=== PATIENT | male | born 1975 | race Caucasian/White ===

== ENCOUNTER 2022-05-21 08:07 | Outpatient (CLI) | payer OTHER, SELFPAY | END 2022-05-21 08:08 | disposition home or self-care (01) | LOC: NFLDREF 05-23 02:08 | PROVIDERS: PCP Physician Assistant Medical; Referring Provider Physician Assistant Medical; Visit Provider Physician Assistant Medical | DX: Z00.00 Encounter for general adult medical examination without abnormal findings (principal); I10 Essential (primary) hypertension; R73.09 Other abnormal glucose; R79.89 Other specified abnormal findings of blood chemistry; M10.9 Gout, unspecified | CPT/HCPCS: 80053; 80061 ==

== ENCOUNTER 2022-05-29 08:11 | Outpatient (CLI) | payer OTHER, SELFPAY | END 2022-05-29 08:12 | disposition home or self-care (01) | LOC: NFLDREF 05-30 14:41 | PROVIDERS: PCP Physician Assistant Medical; Referring Provider Physician Assistant Medical; Visit Provider Physician Assistant Medical | DX: Z00.00 Encounter for general adult medical examination without abnormal findings (principal); I10 Essential (primary) hypertension; R09.81 Nasal congestion | CPT/HCPCS: 87086 ==

== ENCOUNTER 2022-06-17 10:54 | Emergency (ER) | payer OTHER, SELFPAY ==
[2022-06-17 11:04] VITALS: BP 136/93; PULSE 108; RESP 14; TEMP 36; O2SAT 97; BMI 34.5
[2022-06-17] MEDS: 0.9 % SODIUM CHLORIDE 1000 ml 1,000 ML IV ×2 (12:10→13:25)
[2022-06-17] MEDS: ONDANSETRON 2 MG/ML inj 4 MG IVP (12:15)
[2022-06-17 12:27] LABS: Lactate* 1.1 mmol/L (0.5-1.9)
--- NOTE | 2022-06-17 12:31 | ED.NAVMDI ---
HPI - Nausea/Vomiting/Diarrhea General Date Seen: 06/17/22 Chief complaint: Diarrhea Stated complaint: Diarrhea Time Seen by Provider: 06/17/22 11:09 Source: patient and family Mode of arrival: ambulatory Limitations: no limitations History of Present Illness HPI Narrative: Patient is a very nice gentleman who presents here with 4 days of diarrhea, and low abdominal cramping/pain. Just return from [place] and the [facility] [place] with his family, says he drank more than he should 8 more than he should, he is the only family member that has the diarrhea, and there is absence of any nausea vomiting. 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 MD elicited complaint: diarrhea Onset (ago): day(s) Description of diarrhea: watery Associated nausea: No Associated abdominal pain: No Location of pain: none Severity: moderate Quality: cramping Exacerbating factors: eating Relieving factors: none Associated symptoms: denies other symptoms Related Data Home Medications Medication Instructions Recorded Confirmed losartan 50 mg tablet mg PO DAILY 05/29/22 triamcinolone acetonide 55 mcg 2 intranasal DAILY 05/29/22 nasal spray aerosol Previous Rx's Medication Instructions Recorded ondansetron 4 mg disintegrating 4 mg PO Q8-12H PRN nausea and 06/17/22 tablet vomiting 4 days #14 tabs Allergies Allergy/AdvReac Type Severity Reaction Status Date / Time hydrochlorothiazide Allergy Unknown Unknown Verified 06/17/22 13:56 Review of Systems Status of ROS: Reports: 10 or more systems reviewed and unremarkable except as noted in History and below GI: Denies: nausea PFSH PFSH Surgical History History of facial surgery ?Z98.890 - Other specified postprocedural states (ICD-10) Family History Father Diabetes High blood pressure Daughter Seizure disorder Parathyroid disease Social History Narrative: , 3 daughters Alcohol use-regular use without concerns Non-smoker Smoking Status: Never smoker Do you use any of these nicotine containing products: None Second hand tobacco smoke exposure: No How often do you have a drink containing alcohol: 4 or more times a week How many standard drinks containing alcohol do you have on a typical day: 3 or 4 How often do you have six or more drinks on one occasion: Monthly AUDIT-C Alcohol total score: 7 Non-prescribed substance use: marijuana (any form) Little interest or pleasure in doing things: not at all Feeling down, depressed, or hopeless: not at all service: No Exam Narrative: Exam Narrative: Patient is seen with his , he is in no apparent distress, speaking to me normally his pupils are equal round reactive to light there is no scleral icterus redness TMs bilaterally are normal, oropharynx normal there is no lymphadenopathy anterior posterior chains, chest is good air entry bilaterally with no wheezing crackles noted, heart sounds no clicks murmurs or gallops, abdomen is soft little bit of tenderness in the left lower quadrant on deep palpation, bowel sounds are normal, no CVA tenderness he moves all extremities independently and well, skin reveals no petechiae rashes. Const: Vital Signs, click to edit/add: Vital Signs - 24 hr 06/17/22 11:04 06/17/22 12:40 06/17/22 14:02 Temperature 96.8 F L 97 F L Pulse Rate [Right Pulse Oximeter] 108 H 84 86 Respiratory Rate 14 20 20 Blood Pressure [Le ft Upper Arm] 135/83 Blood Pressure [Ri ght Upper Arm] 136/93 H 114/78 Pulse Oximetry 97 97 99 Oxygen Delivery Me thod Room Air Room Air Room Air Course Course Hospital Course: Discussed with the patient that his CT did not show any acute abnormality, given history, examination, and will over seen with the labs, I would ask him to use Pepto-Bismol along with some Zofran, I think this will significantly help him over the next few days we went over signs is worsening, and worsening symptoms, he should return if these occur he was very comfortable with this. Vital Signs Vital signs: Initial Vital Signs Temperature 96.8 F L 06/17/22 11:04 Temperature Source Temporal Artery Scan 06/17/22 11:04 Pulse Rate 108 H 06/17/22 11:04 Respiratory Rate 14 06/17/22 11:04 Blood Pressure 136/93 H 06/17/22 11:04 Blood Pressure Mean 107 06/17/22 11:04 Blood Pressure Position Sitting 06/17/22 11:04 Pulse Oximetry 97 06/17/22 11:04 Oxygen Delivery Method Room Air 06/17/22 11:04 Vital Signs Temperature 96.8 F L 06/17/22 11:04 Pulse Rate 108 H 06/17/22 11:04 Respiratory Rate 14 06/17/22 11:04 Blood Pressure 136/93 H 06/17/22 11:04 Pulse Oximetry 97 06/17/22 11:04 Oxygen Delivery Method Room Air 06/17/22 11:04 Temperature 97 F L 06/17/22 14:02 Pulse Rate 86 06/17/22 14:02 Respiratory Rate 20 06/17/22 14:02 Blood Pressure 135/83 06/17/22 14:02 Pulse Oximetry 99 06/17/22 14:02 Oxygen Delivery Method Room Air 06/17/22 14:02 MDM - Nausea/Vomiting/Diarrhea MDM Narrative Medical decision making narrative: Differential diagnosis considered include but not limited to viral gastroenteritis, food poisoning, bowel obstruction, Clostridium difficile, Campylobacter, Shigella, rotavirus, medication side effects, dysentery, diverticulitis, Crohn's disease and colitis Medical Records Attestation: I reviewed the patient's medical records. Lab Data Attestation: I reviewed the patient's lab results. Labs: Lab Results 06/17/22 06/17/22 06/17/22 Range/Units 11:41 11:52 12:05 WBC 16.41 H (4.50-11.00) K/uL RBC 5.59 (4.30-5.90) m/uL Hgb 16.7 (13.5-17.5) gm/dL Hct 48.9 (37.0-53.0) % MCV 88 (80-100) fL MCH 30 (26-34) pg MCHC 34 (32-36) gm/dL RDW Coeff of Daphne 12.9 (11.5-15.5) % Plt Count 415 (140-440) K/uL Neut % (Auto) 80.4 H (42.0-72.0) % Lymph % (Auto) 9.4 L (20-44) % [place] % (Auto) 7.1 (0.0-11.0) % Eos % (Auto) 2.5 (0.0-7.0) % Baso % (Auto) 0.2 (0.0-3.0) % Neut # (Auto) 13.20 H (1.7-7.0) K/uL Lymph # (Auto) 1.50 (0.90-2.90) K/uL [place] # (Auto) 1.20 H (0.00-0.90) K/UL Eos # (Auto) 0.40 (0.00-0.50) K/uL Baso # (Auto) 0.00 (0.00-0.30) K/uL Sodium 140 (135-149) mmol/L Potassium 4.0 (3.6-5.1) mmol/L Chloride 107 (96-114) mmol/L Carbon Dioxide 19 L (20-32) mmol/L BUN 16 (5-24) mg/dL Creatinine 0.9 (0.5-1.5) mg/dL Estimated Creat Clear 119.97 Estimated GFR 105 ml/min Glucose 100 (60-115) mg/dL Lactate 1.1 (0.5-1.9) mmol/L Calcium 9.2 (8.4-10.6) mg/dL Total Bilirubin 0.8 (0.1-1.5) mg/dL Direct Bilirubin 0.4 (0.0-0.5) mg/dL AST 50 H (12-35) U/L ALT 105 H (4-50) U/L Alkaline Phosphatase 84 (40-150) U/L C-Reactive Protein 1.5 H (0.5-1.0) mg/dL Total Protein 9.0 H (6.0-8.3) g/dL Albumin 5.1 H (3.3-5.0) g/dL Lipase 71 (23-300) U/L Urine Color (Yellow) Urine Appearance (Clear) Urine pH (5.0-8.5) Ur Specific [place] (1.000-1.030) Urine Protein (Negative) Urine Glucose (UA) (Negative) Urine Ketones (Negative) Urine Blood (Negative) Urine Nitrite (Negative) Urine Bilirubin (Negative) Urine Urobilinogen (0.2-1.0) Ur Leukocyte Esterase (Negative) Urine RBC (0-2) Urine WBC (0-5) Ur Squamous Epith Cells (None-Few) Urine Bacteria (None) Urine Mucus (None) Stl C.difficile Tox PCR Negative (Negative) St C. diff Tox Epid 027 PRESUMPTIVE NEGATIVE (Negative) SARS-CoV-2 (PCR) Negative SARS-CoV-2 (Negative) Influenza Type A (PCR) Negative PCR FLU A (Negative) Influenza Type B (PCR) Negative PCR FLU B (Negative) RSV (PCR) Negative PCR RSV (Negative) 06/17/22 Range/Units 13:40 WBC (4.50-11.00) K/uL RBC (4.30-5.90) m/uL Hgb (13.5-17.5) gm/dL Hct (37.0-53.0) % MCV (80-100) fL MCH (26-34) pg MCHC (32-36) gm/dL RDW Coeff of Daphne (11.5-15.5) % Plt Count (140-440) K/uL Neut % (Auto) (42.0-72.0) % Lymph % (Auto) (20-44) % [place] % (Auto) (0.0-11.0) % Eos % (Auto) (0.0-7.0) % Baso % (Auto) (0.0-3.0) % Neut # (Auto) (1.7-7.0) K/uL Lymph # (Auto) (0.90-2.90) K/uL [place] # (Auto) (0.00-0.90) K/UL Eos # (Auto) (0.00-0.50) K/uL Baso # (Auto) (0.00-0.30) K/uL Sodium (135-149) mmol/L Potassium (3.6-5.1) mmol/L Chloride (96-114) mmol/L Carbon Dioxide (20-32) mmol/L BUN (5-24) mg/dL Creatinine (0.5-1.5) mg/dL Estimated Creat Clear Estimated GFR ml/min Glucose (60-115) mg/dL Lactate (0.5-1.9) mmol/L Calcium (8.4-10.6) mg/dL Total Bilirubin (0.1-1.5) mg/dL Direct Bilirubin (0.0-0.5) mg/dL AST (12-35) U/L ALT (4-50) U/L Alkaline Phosphatase (40-150) U/L C-Reactive Protein (0.5-1.0) mg/dL Total Protein (6.0-8.3) g/dL Albumin (3.3-5.0) g/dL Lipase (23-300) U/L Urine Color Dark yellow (Yellow) Urine Appearance Cloudy A (Clear) Urine pH 5.5 (5.0-8.5) Ur Specific [place] 1.025 (1.000-1.030) Urine Protein 1+ A (Negative) Urine Glucose (UA) Negative (Negative) Urine Ketones Negative (Negative) Urine Blood Trace-intact A (Negative) Urine Nitrite Negative (Negative) Urine Bilirubin 1+ A (Negative) Urine Urobilinogen 0.2 (0.2-1.0) Ur Leukocyte Esterase Negative (Negative) Urine RBC 5-10 A (0-2) Urine WBC 0-2 (0-5) Ur Squamous Epith Cells Few (None-Few) Urine Bacteria None (None) Urine Mucus Few A (None) Stl C.difficile Tox PCR (Negative) St C. diff Tox Epid 027 (Negative) SARS-CoV-2 (PCR) (Negative) Influenza Type A (PCR) (Negative) Influenza Type B (PCR) (Negative) RSV (PCR) (Negative) Imaging Data CT scan - abdomen: Radiologist's impression: Patient: SHANTA MENDES Facility:?[facility] Patient ID:?[id number] Site Patient ID:?[id number]. Site :?[id number] Study:?CT Abdomen/Pelvis w/ 135cc [id number]/11/2023 2:04:35 PM Ordering Physician:Landen Chance Final Report: INDICATION: Left lower quadrant pain and diarrhea TECHNIQUE: Axial images were obtained from the diaphragm to the pubic symphysis. Reformats were obtained in the coronal and sagittal plane. IV Contrast: 135 cc Isovue 370 Oral Contrast: None COMPARISON: None. FINDINGS: Lower chest: Unremarkable. Liver: Normal in contour with diffusely decreased density. 12 millimeter cyst within segment 7 of the liver. Gallbladder and bile ducts: Unremarkable. No stones or inflammation. No biliary dilatation. Spleen: Unremarkable. Normal in size without mass. Pancreas: Unremarkable. No mass or inflammation. Adrenal glands: Unremarkable. No nodules. Kidneys: Symmetric renal enhancement without hydronephrosis. Exophytic cyst lower pole left kidney measuring 4.7 centimeters. Vasculature: Unremarkable. GI tract: The stomach is unremarkable. No dilated loops of large or small intestine. Appendix unremarkable. Mild colonic diverticulosis. Small fat containing umbilical hernia. Pelvis: Moderate prostatic enlargement. Bladder minimally distended. Bones: Mild degenerative changes lower lumbar spine. IMPRESSION: 1. Colonic diverticulosis without CT evidence of diverticulitis. 2. Moderate hepatic steatosis. 3. Moderate prostatic enlargement. Please note that all CT scans at this facility use dose modulation, iterative reconstruction, and/or weight-based dosing when appropriate to reduce radiation dose to as low as reasonably achievable. Dictated by Ish Newton MD @ 06/17/2022 2:55:46 PM (Electronic Signature) Discharge Plan Discharge Clinical Impression: Diarrhea Patient Disposition: Home w/ Parent or Adult Condition: Improved Instructions: Traveler's Diarrhea (ED), Acute Diarrhea (ED) Additional Instructions: Home rest Pepto-Bismol, 3 times a day for the next 5-7 days, please also use the Zofran as needed, this should really improve your symptoms, continue with fluids, return here if increasing abdominal pain fevers chills nausea vomiting or other issues. Reassured by your CT, and laboratory work here today, but things can change with time, and return as you see fit. Prescriptions: New ondansetron 4 mg tablet,disintegrating 4 mg PO Q8-12H PRN (Reason: nausea and vomiting) 4 Days Qty: 14 0RF No Action triamcinolone acetonide 55 mcg aerosol,spray 2 intranasal DAILY losartan 50 mg tablet PO DAILY Follow Up/Referrals: Valeria Nazario PA-C [Primary Care Provider] - Stand Alone Forms: [facility] Info Instructions
[2022-06-17 12:38] LABS: Basophils Percent Auto 0.2 % (0.0-3.0); Eosinophils Percent Auto 2.5 % (0.0-7.0); Hematocrit 48.9 % (37.0-53.0); Hemoglobin* 16.7 gm/dL (13.5-17.5); Immature Granulocytes Pct Auto 0.4 %; Lymphocytes Percent Auto 9.4 % (20-44); Mean Corpuscular HGB Conc 34 gm/dL (32-36); Mean Corpuscular Hemoglobin 30 pg (26-34); Mean Corpuscular Volume 88 fL (80-100); Monocytes Percent Auto 7.1 % (0.0-11.0); Neutrophils Percent Auto 80.4 % (42.0-72.0); Platelet Count* 415 K/uL (140-440); RDW Coefficient of Variation % 12.9 % (11.5-15.5); Red Blood Count 5.59 m/uL (4.30-5.90); White Blood Count* 16.41 K/uL (4.50-11.00)
[2022-06-17 12:40] VITALS: BP 114/78; PULSE 84; RESP 20; O2SAT 97
[2022-06-17 12:56] LABS: Slide Review Reflex No
--- NOTE | 2022-06-17 13:04 | CRLHL7_ITS ---
For Patients: As a result of the Century Cures Act, medical imaging exams and procedure reports are released immediately into your electronic medical record. You may view this report before your referring provider. If you have questions, please contact your health care provider. INDICATION: Left lower quadrant pain and diarrhea TECHNIQUE: Axial images were obtained from the diaphragm to the pubic symphysis. Reformats were obtained in the coronal and sagittal plane. IV Contrast: 135 cc Isovue 370 Oral Contrast: None COMPARISON: None. FINDINGS: Lower chest: Unremarkable. Liver: Normal in contour with diffusely decreased density. 12 millimeter cyst within segment 7 of the liver. Gallbladder and bile ducts: Unremarkable. No stones or inflammation. No biliary dilatation. Spleen: Unremarkable. Normal in size without mass. Pancreas: Unremarkable. No mass or inflammation. Adrenal glands: Unremarkable. No nodules. Kidneys: Symmetric renal enhancement without hydronephrosis. Exophytic cyst lower pole left kidney measuring 4.7 centimeters. Vasculature: Unremarkable. GI tract: The stomach is unremarkable. No dilated loops of large or small intestine. Appendix unremarkable. Mild colonic diverticulosis. Small fat containing umbilical hernia. Pelvis: Moderate prostatic enlargement. Bladder minimally distended. Bones: Mild degenerative changes lower lumbar spine. IMPRESSION: 1. Colonic diverticulosis without CT evidence of diverticulitis. 2. Moderate hepatic steatosis. 3. Moderate prostatic enlargement. Please note that all CT scans at this facility use dose modulation, iterative reconstruction, and/or weight-based dosing when appropriate to reduce radiation dose to as low as reasonably achievable. Dictated by Ish Newton MD @ 06/17/2022 2:55:46 PM (Electronically Signed)
[2022-06-17 13:10] LABS: C.Difficile Negative (Negative); CDIFFEPI 027 PRESUMPTIVE NEGATIVE (Negative)
[2022-06-17 13:22] LABS: Blood Urea Nitrogen* 16 mg/dL (5-24); Calcium* 9.2 mg/dL (8.4-10.6); Carbon Dioxide* 19 mmol/L (20-32); Chloride* 107 mmol/L (96-114); Creatinine* 0.9 mg/dL (0.5-1.5); Est. Creatinine Clearance* 119.97; Estimated Glomerular Filt Rate 105 ml/min; Glucose* 100 mg/dL (60-115); Sodium* 140 mmol/L (135-149)
[2022-06-17 13:23] LABS: Alanine Aminotransferase* 105 U/L (4-50); Albumin* 5.1 g/dL (3.3-5.0); Alkaline Phosphatase* 84 U/L (40-150); Aspartate Amino Transferase* 50 U/L (12-35); Bilirubin Direct* 0.4 mg/dL (0.0-0.5); Bilirubin Total* 0.8 mg/dL (0.1-1.5); C Reactive Protein* 1.5 mg/dL (0.5-1.0); Lipase* 71 U/L (23-300)
[2022-06-17 13:29] LABS: PCR FLU A Negative PCR FLU A (Negative); PCR FLU B Negative PCR FLU B (Negative); PCR RSV Negative PCR RSV (Negative)
[2022-06-17 13:35] LABS: SARS PCR* Negative SARS-CoV-2 (Negative)
--- NOTE | 2022-06-17 13:53 | ED.NURSE ---
ua and diarrheal stool obtained and sent to lab.
[2022-06-17 13:54] LABS: Appearance Urine Cloudy (Clear); Bilirubin Urine 1+ (Negative); Blood Urine Trace-intact (Negative); Color Urine Dark yellow (Yellow); Glucose Urine Negative (Negative); Ketones Urine Negative (Negative); Leukocyte Esterase Urine Negative (Negative); Nitrite Urine Negative (Negative); Protein Urine 1+ (Negative); Specific Gravity Urine 1.025 (1.000-1.030); Urobilinogen Urine 0.2 (0.2-1.0); pH Urine 5.5 (5.0-8.5)
[2022-06-17 14:02] VITALS: BP 135/83; PULSE 86; RESP 20; TEMP 36.1; O2SAT 99
[2022-06-17 14:13] LABS: Mucus Urine Few; Squamous Epithelial Cell Urine Few (None-Few); WBC Urine 0-2 (0-5)
== END 2022-06-17 15:46 | disposition home or self-care (01) ==
PROVIDERS: Emergency Provider Family Medicine; PCP Physician Assistant Medical
DX: R19.7 Diarrhea, unspecified (principal)
CPT/HCPCS: 36415; 74177; 80048; 80076; 81001; 83605; 83690; 85025; 86140; 87045; 87046; 87427; 87493; 87631; 96374; 99284; J2405; J7030; Q9967

== ENCOUNTER 2022-08-12 19:44 | Outpatient (CLI) | payer OTHER, SELFPAY ==
--- NOTE | 2022-08-21 11:46 | W.PM.SLEEP ---
Sleep Study Details Details Interpreting Provider: Ya Date of Sleep Study: 08/12/22 Sleep Study Details: STUDY TYPE:? Home unattended ? BMI:? 34.1 ORDERING PROVIDER:Marcelo Nazario INDICATION:? Concerns about sleep apnea ? SLEEP SUMMARY:? 470 minutes monitored RESPIRATORY SUMMARY:? AHI 37.4 Supine 47.5, left lateral 12.1, right lateral 59.3 Low oxygen 85 0.8% of study oxygen less than 90% Snoring 30.7% PERIODIC LIMB MOVEMENTS OF SLEEP:? Not recorded during home study CARDIAC:? Range 47-94, mean 64.2 IMPRESSION:? Severe obstructive sleep apnea AutoSet CPAP pressure 4-17. RECOMMENDATION: []
== END 2022-08-12 19:45 | disposition home or self-care (01) ==
LOC: SLEEP 19:45
PROVIDERS: PCP Physician Assistant Medical; Visit Provider Physician Assistant Medical
DX: G47.33 Obstructive sleep apnea (adult) (pediatric) (principal)
CPT/HCPCS: 95806

== ENCOUNTER 2023-08-14 13:10 | Outpatient (CLI) | payer OTHER, SELFPAY | END 2023-08-14 13:11 | disposition home or self-care (01) | LOC: NFLDREF 08-31 14:30 | PROVIDERS: PCP Physician Assistant Medical; Referring Provider Physician Assistant Medical; Visit Provider Physician Assistant Medical | DX: D72.829 Elevated white blood cell count, unspecified (principal); R77.9 Abnormality of plasma protein, unspecified | CPT/HCPCS: 80053 ==

== ENCOUNTER 2023-09-30 15:45 | Outpatient (RCR) | payer OTHER, SELFPAY ==
--- NOTE | 2023-09-30 16:34 | PT.OPDN ---
[facility] Daily Note [facility] Daily Note Start: 08/31/23 07:22 Freq: Status: Active Protocol: Document 09/30/23 15:20 CJT (Rec: 09/30/23 16:30 CJT [id number]) E-signed By Brayden Aponte, PT PT OP Daily Progress Note Visit Information Note Type Daily Note Visit Number 5 Insurance Authorized Visits tbd Physician Authorized Visits eval and treat Insurance Information Recert Due Date 11/29/23 Insurance Name [facility] Medical Diagnosis Hip pain Treating Diagnosis L hip pain Referring MD Linares, Kt SCHUSTER Subjective Preferred Name Miki Mcdaniels Went on several college tours on Thursday and did lots of walking, Groin and adductor bundle have been very flared up since. Has been trying to use massage gun and stretching with minimal improvement. % improvement. Pain Comments 06/16 Home Exercise Home Exercise Comments Access Code: [email or web address] URL: [email or web address] Date: 08/31/2023 Prepared by: Brayden Aponte Exercises - Supine Active Straight Leg Raise - 1 x daily - 7 x weekly - 2-3 sets - 10-20 reps - Clamshell - 1 x daily - 7 x weekly - 2-3 sets - 10-20 reps - Supine Piriformis Stretch with Foot on Ground - 1 x daily - 7 x weekly - 2-3 sets - 60 seconds hold - Squat - 1 x daily - 7 x weekly - 2-3 sets - 10-20 reps Objective Other/Pertinent Objective R Hip Strength Flexion - 5/5 MMT Abduction - 5/5 MMT Adduction - 5/5 MMT IR - 5/5 MMT ER - 5/5 MMT Extension - 5/5 MMT L Hip Strength Flexion - 5/5 MMT Abduction - 5/5 MMT Adduction - 5/5 MMT IR - 5/5 MMT ER - 5/5 MMT Extension - 5/5 MMT L side only FADER: pos *lack of ROM FABIR: pos Scower: neg Resisted SLR: *pain in groin Log roll: min positive Patient Instructed in Risks/Benefits Yes Therapeutic Exercise Therapeutic Exercise Minutes (minutes) 40 Therapeutic Exercise: To Restore Bike 5 min Functional Status (L side only) Figure 4 piriformis stretch w/ OP 2 x 60 SLR x 20 SL hip abduction x 20 Quadruped hip ext x 20 SL hip add x 20 Bridge with ball b/w knees x 20 Standing hip flexion/extension , abduction/adduction with light resistance x 10 ea TRX Reverse lunges 2 x 10 ea 1/2 kneel dynamic hip stretching Blakeslee stretch x 60 ea Treatment Minutes Timed Code Treatment Minutes 40 Total Treatment Time 40 Billing Units Therapeutic Exercise Units 3 Assessment/Impression Assessment/Impression Pt demos 5/5 MMT for all hip motions bilaterally and he tests without pain this date. However, hip pain persists. I do think that based on Miki's subjective report and objective findings that Miki likely has a tear in his labrum that is limiting his progression via therapy. At this point I would recommend MRI of the L hip and cortisone injection to L hip to reduce pain. We will hold Miki's chart 30 days in case he is in need of additional therapy. Today, his HEP was reviewed and updated for I performance to continue managing current level of symptoms. If pt does not return to our clinic in next 30 days. This note will serve as his discharge note. Plan of Care Physical Therapy Goals STG - To be completed in 2-3 weeks: 1. Pt will report reduction in L hip pain by factor of 2 so that he may go for walks with his family for pleasure. MET LTG - To be completed in 8 weeks: 1. Pt to be I with HEP so that he may I manage progression of symptoms. 2. Pt will report ability to play full round of golf without hip pain so that he may participating in golfing league with his friends. 3. Pt will demo 5/5 MMT for all LE motions B to provide greater support to B hips and pelvis. Daily Plan of Care Change POC; See Comments Daily Plan of Care Comments Hold chart Discharge Note Discharge Summary Pt demos 5/5 MMT for all hip motions bilaterally and he tests without pain this date. However, hip pain persists. I do think that based on Miki's subjective report and objective findings that Miki likely has a tear in his labrum that is limiting his progression via therapy. At this point I would recommend MRI of the L hip and cortisone injection to L hip to reduce pain. We will hold Miki's chart 30 days in case he is in need of additional therapy. Today, his HEP was reviewed and updated for I performance to continue managing current level of symptoms. If pt does not return to our clinic in next 30 days. This note will serve as his discharge note. Date of First Visit for Therapy 08/31/23 Date of Last Visit for Therapy 09/30/23 Interventions Provided During Treatment Joint Mobilization,Manual Therapy,Therapeutic Exercise Recommendations/Reason for Discharge Progress Cont w/HEP,Returned to
== END 2024-01-28 09:28 | disposition home or self-care (01) ==
PROVIDERS: PCP Physician Assistant Medical; Visit Provider Family Medicine
DX: M25.552 Pain in left hip (principal); Z51.89 Encounter for other specified aftercare
CPT/HCPCS: 97110; 97140; 97161

== ENCOUNTER 2023-12-31 08:50 | Outpatient (CLI) | payer OTHER, SELFPAY | END 2023-12-31 08:51 | disposition home or self-care (01) | LOC: NFLDREF 01-01 11:55 | PROVIDERS: PCP Physician Assistant Medical; Visit Provider Physician Assistant Medical | DX: K76.0 Fatty (change of) liver, not elsewhere classified (principal); R79.82 Elevated C-reactive protein (CRP); R80.9 Proteinuria, unspecified | CPT/HCPCS: 80076; 86140; 87086 ==

== ENCOUNTER 2024-01-12 09:03 | Outpatient (CLI) | payer OTHER, SELFPAY | END 2024-01-12 09:04 | disposition home or self-care (01) | LOC: LKVREF 09:03 | PROVIDERS: PCP Physician Assistant Medical; Visit Provider Emergency Medicine | DX: I10 Essential (primary) hypertension (principal) | CPT/HCPCS: 80048 ==

== ENCOUNTER 2024-01-15 08:32 | Outpatient (CLI) | payer OTHER, SELFPAY ==
--- NOTE | 2024-01-15 08:45 | CRLHL7_ITS ---
For Patients: As a result of the Century Cures Act, medical imaging exams and procedure reports are released immediately into your electronic medical record. You may view this report before your referring provider. If you have questions, please contact your health care provider. INDICATION: Elevated liver tests COMPARISON: CT 06/17/2022 TECHNIQUE: Real time marley scale imaging and color Doppler analysis was performed of the right upper quadrant. FINDINGS: The liver measures 18.0 cm and has diffusely increased echotexture. There is a normal appearance of the hepatic IVC and proximal abdominal aorta. There is no evidence of ascites. The gallbladder is of normal size and there is no evidence of intraluminal stones or sludge. The gallbladder wall measures 1.8 mm in thickness. The common bile duct measures 6.3 mm in diameter at the level of the lis hepatis. The visualized pancreas appears unremarkable. There is no evidence of a stone or hydronephrosis within the right kidney. The right kidney measures 12.2 cm in length. IMPRESSION: Diffuse hepatic steatosis, chronic. No gallstones. Dictated by Micheal Renee MD @ 01/15/2024 10:28:40 AM (Electronically Signed)
== END 2024-01-15 08:33 | disposition home or self-care (01) ==
LOC: US 08:32
PROVIDERS: PCP Physician Assistant Medical; Visit Provider Physician Assistant Medical
DX: R79.89 Other specified abnormal findings of blood chemistry (principal); K76.0 Fatty (change of) liver, not elsewhere classified; N28.1 Cyst of kidney, acquired
CPT/HCPCS: 76705

== ENCOUNTER 2024-01-20 10:45 | Day surgery (SDC) | payer OTHER, SELFPAY ==
[2024-01-20] VITALS (17 sets, daily range): BP systolic 78–126; BP diastolic 56–93; PULSE 50–72; RESP 12–16; TEMP 36.1–36.5; O2SAT 94–100; BMI 35.4
--- NOTE | 2024-01-20 10:55 | W.PM.H&PU ---
History & Physical Update History & Physical Update H&P Reviewed and patient assessed: No changes noted
[2024-01-20] MEDS: SODIUM CHLORIDE 0.9 % (FLUSH) 10 ML SYRINGE IVF (11:20)
[2024-01-20] MEDS: CEFAZOLIN 2 GM in 0.9 % SODIUM CHLORIDE Mini-bag 100 ML IVPB (12:42)
--- NOTE | 2024-01-20 12:47 | W.ANESCHARGE ---
Anesthesia Charges Start Date/Time Anesthesia Start Date: 01/20/24 Anesthesia Start Time: 12:14 Stop Date/Time Anesthesia Stop Date: 01/20/24 Anesthesia Stop Time: 13:20
--- NOTE | 2024-01-20 13:07 | P.ORPRC_ITS ---
Procedure Note Date of procedure: 01/20/24 Procedure: PREOPERATIVE DIAGNOSIS: 1. Right knee medial and lateral meniscus tear POSTOPERATIVE DIAGNOSIS: 1. Right knee lateral meniscus tear PROCEDURE: 1. Right knee arthroscopic partial lateral meniscectomy SURGEON: Gt Crow M.D. CHILD LIFE SPECIALIST: DAVON Loza. Of note, an clerical dentist assistant was critical for this case to aid in patient positioning, knee manipulation, instrument exchange, and closure. ANESTHESIA: Spinal EBL: 2ml TOURNIQUET: 22 min at 300 torr COMPLICATIONS: None evident INDICATIONS: The patient is a pleasant 48-year-old male who has experienced right knee pain particularly with any twisting or turning. Physical exam was concerning for medial meniscus tear, this was confirmed on MRI. Additionally, attempted nonoperative management has been tried, and failed. Thus, surgery was recommended. FINDINGS: Complex tear posterior horn lateral meniscus approaching the posterior root. 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 Grade 3 chondromalacia patella median ridge and lateral facet as well as trochlear groove centrally. Intact medial meniscus including the posterior root. Relatively healthy articular cartilage medial compartment with only mild grade 2 chondromalacia. No loose bodies. ACL and PCL intact and robust. DESCRIPTION OF PROCEDURE: After a thorough discussion of risks, benefits, and alternatives, the patient was brought to the operating room and placed upon the operating table. Induction of anesthesia was undertaken as previously noted. 3 g IV Ancef was administered within 1 hr of incision preoperatively. Appropriate time-out was performed identifying proper patient, site, and procedure. The right lower extremity was prepped and draped in the appropriate sterile fashion using ChloraPrep. The limb was exsanguinated and tourniquet inflated. Anterolateral and anteromedial portals were established with an 11 blade, and a diagnostic arthroscopy was performed. This identified the findings as noted above. Following the diagnostic arthroscopy, a partial lateral menisectomy was performed with the combination of basket forceps and a motorized shaver. Following this, the meniscus was re-probed and found to be stable. Approximately 20-25% of the overall meniscus required resection. At this stage, the shaver was reinserted into the suprapatellar pouch and all remaining meniscal debris was evacuated. Instruments were removed, excess fluid was drained, and closure performed with 4-0 Monocryl with Steri-Strips. Dressings were applied, the tourniquet deflated, and the patient was awoken from anesthesia and transferred to the PACU in stable condition. PLAN: 1. Weightbear as tolerated operative extremity. Crutch / walker ambulation assistance PRN. 2. Ice, acetominophen and/or ibuprofen, and Oxycodone for pain as needed. 3. Knee range of motion and quad sets/straight leg raise regularly 4. Follow up with PA visit in 1-2 weeks for a wound check and possibly to initiate physical therapy.
[2024-01-20] MEDS: ROPIVACAINE 0.5% 30 ML 150 MG INJECTION (13:08)
--- NOTE | 2024-01-20 13:21 | W.ANESCHARGE ---
Anesthesia Charges Start Date/Time Anesthesia Start Date: 01/20/24 Anesthesia Start Time: 12:14 Stop Date/Time Anesthesia Stop Date: 01/20/24 Anesthesia Stop Time: 13:20
--- NOTE | 2024-01-20 16:15 | SUR.PHASEII ---
Patient came to [facility] from PACU with 100cc left in 500cc normal saline IV bag. 100cc given in SDS. Patients blood pressure within normal limits, no dizziness with elevation of patients HOB. IV discontinued at 1445, patient tolerating oral fluids.
== END 2024-01-20 15:10 | disposition home or self-care (01) ==
LOC: OR 10:45
PROVIDERS: PCP Physician Assistant Medical; Visit Provider Orthopaedic Surgery Sports Medicine
PROC: (CPT 29870; principal; 2024-01-20 12:30)
DX: S83.271A Complex tear of lateral meniscus, current injury, right knee, initial encounter (principal); M94.261 Chondromalacia, right knee
CPT/HCPCS: 29881; 01400; J0690; J1100; J1885; J2250; J2405; J2704; J2795; J3010; J7050

== ENCOUNTER 2024-03-08 09:10 | Emergency (ER) | payer OTHER, SELFPAY ==
[2024-03-08 09:19] VITALS: BP 129/87; PULSE 95; RESP 18; TEMP 37; O2SAT 96; BMI 34.5
--- NOTE | 2024-03-08 09:39 | CRLHL7_ITS ---
For Patients: As a result of the Century Cures Act, medical imaging exams and procedure reports are released immediately into your electronic medical record. You may view this report before your referring provider. If you have questions, please contact your health care provider. INDICATION: Lower abdominal pain. COMPARISON: June 17, 2022 TECHNIQUE: CT examination of the abdomen and pelvis was performed following the uneventful intravenous administration of 146 cc of Isovue 370. Thin section axial images were obtained from the lung bases through the pubic symphysis. Oral contrast was not administered. Please note that all CT scans at this facility use dose modulation, iterative reconstruction, and/or weight-based dosing when appropriate to reduce radiation dose to as low as reasonably achievable. FINDINGS: LUNG BASES: The lung bases as visualized appear normal.The heart size is normal at the lung bases. LIVER/BILIARY SYSTEM:The liver is normal in size and configuration. There is no focal mass and there is no intra- or extra hepatic biliary ductal dilatation.Hepatic steatosis. Normal-appearing gallbladder ADRENALS: Normal KIDNEYS, URETERS and BLADDER:Normal size kidneys. Low-density lesions consistent with cysts. No obstructive uropathy. The bladder appears normal. SPLEEN:Normal appearance. PANCREAS: Appears normal. RETROPERITONEUM and MESENTERY: There is no mass, adenopathy or aortic aneurysm. Minimal atherosclerotic vascular calcification GASTROINTESTINAL SYSTEM: There is diverticulosis. There are 2 distinct separate foci of what is likely acute diverticulitis. One focus is in the distal descending colon. This is of moderate severity with surrounding inflammatory change and fluid but no collection or free air. More inferiorly, a similar such finding is noted in the sigmoid. No collection identified in this area PELVIS: Mild free fluid. Prominent prostate.. OSSEOUS STRUCTURES and ABDOMINAL WALL: There is an age-appropriate appearance of the osseous structures.No significant abdominal wall defect. OTHER: No free fluid or free air. IMPRESSION: 1. There are 2 separate areas of acute diverticulitis. One is in the distal descending colon and the other is in the sigmoid colon. Follow-up direct evaluation of the colon is recommended after resolution of the acute inflammatory process to ensure that both areas do indeed represent a benign underlying etiology. 2. Other nonacute appearing findings as above Please note that all CT scans at this facility use dose modulation, iterative reconstruction, and/or weight-based dosing when appropriate to reduce radiation dose to as low as reasonably achievable. Dictated by Ruy Guevara MD @ 03/08/2024 10:24:34 AM (Electronically Signed)
[2024-03-08 09:58] LABS: Basophils Percent Auto 0.3 % (0.0-3.0); Eosinophils Percent Auto 1.5 % (0.0-7.0); Hematocrit 42.4 % (37.0-53.0); Immature Granulocytes Pct Auto 0.5 %; Lymphocytes Percent Auto 10.4 % (20-44); Mean Corpuscular HGB Conc 33 gm/dL (32-36); Mean Corpuscular Hemoglobin 29 pg (26-34); Mean Corpuscular Volume 88 fL (80-100); Monocytes Percent Auto 7.6 % (0.0-11.0); Neutrophils Percent Auto 79.7 % (42.0-72.0); Platelet Count* 341 K/uL (140-440); RDW Coefficient of Variation % 12.4 % (11.5-15.5); Red Blood Count 4.82 m/uL (4.30-5.90); White Blood Count* 15.12 K/uL (4.50-11.00)
[2024-03-08 10:00] LABS: Slide Review Reflex No
[2024-03-08 10:14] LABS: Albumin* 4.3 g/dL (3.3-5.0); Chloride* 101 mmol/L (96-114); Potassium* 4.2 mmol/L (3.6-5.1); Sodium* 135 mmol/L (135-149)
[2024-03-08 10:16] LABS: Anion Gap 9 mEq/L (7-15); Aspartate Amino Transferase* 18 U/L (12-35); Bilirubin Total* 0.8 mg/dL (0.1-1.5); Carbon Dioxide* 25 mmol/L (20-32); Creatinine* 0.9 mg/dL (0.5-1.5); Est. Creatinine Clearance* 117.36; Estimated Glomerular Filt Rate 104 ml/min
[2024-03-08 10:17] LABS: Alanine Aminotransferase* 33 U/L (4-50); Alkaline Phosphatase* 73 U/L (40-150); Blood Urea Nitrogen* 12 mg/dL (7-30); Glucose* 132 mg/dL (60-115); Lipase* 206 U/L (23-300); Total Protein* 7.8 g/dL (6.0-8.3)
[2024-03-08 10:18] LABS: Calcium* 9.1 mg/dL (8.4-10.6)
[2024-03-08] MEDS: LACTATED RINGERS 1000 ML 1,000 ML IV (10:19)
--- NOTE | 2024-03-08 10:20 | ED.ABDPAIN ---
HPI - Abdominal Pain General Date Seen: 03/08/24 Chief Complaint: Abdominal Pain Stated Complaint: abdominal pain Time Seen by Provider: 03/08/24 09:13 Source: patient Mode of arrival: ambulatory Limitations: no limitations History of Present Illness HPI narrative: Patient is a 49-year-old male with a history of hypertension presenting to the emergency department for lower abdominal pain. Symptoms started 4 days ago. Did have a fever of 100.5 on Thursday and a fever of 100 yesterday. Other than that has not noticed any fevers. Has had a small amount of diarrhea but otherwise normal stools. Has been taking Pepto-Bismol for symptoms which has not helped. After he started the Pepto-Bismol did note he had darker stools. States that ibuprofen Tylenol pink the pain from a 6/10 down to a 2 or 3/10. States pain is tolerable at this time. Pain is throughout his lower abdomen but does seem worse on the left lower quadrant. Has not had much of an appetite due to his symptoms but has not had any nausea or vomiting. Has been drinking Gatorade but does not think he has been drinking enough. Has not had symptoms like this before. No previous abdominal surgeries. Denies chest pain, shortness of breath, dysuria, lightheadedness, dizziness, headache, vision changes. No other concerns noted. Related Data Previous Rx's ?Medication ?Instructions ?Recorded losartan 50 mg tablet 50 mg PO DAILY #90 tabs 06/03/23 montelukast 10 mg tablet 10 mg PO QDAY #90 tabs 08/12/23 amoxicillin 875 mg-potassium 1 tab PO TID #15 tabs 03/08/24 clavulanate 125 mg tablet Allergies Allergy/AdvReac Type Severity Reaction Status Date / Time hydrochlorothiazide Allergy Unknown Unknown Verified 03/08/24 10:15 Review of Systems Status of ROS Reports: 10 or more systems reviewed and unremarkable except as noted in History and below [facility] Medical History Elevated blood protein (~06/2023) ?R77.9 - Abnormality of plasma protein, unspecified (ICD-10) Otitis media ?H66.90 - Otitis media, unspecified, unspecified ear (ICD-10) Otitis externa (2020) ?H60.90 - Unspecified otitis externa, unspecified ear (ICD-10) Surgical History S/P lateral meniscectomy of right knee (~01/20/24) ?Z98.890 - Other specified postprocedural states (ICD-10) History of sinus surgery ?Z98.890 - Other specified postprocedural states (ICD-10) History of facial surgery ?Z98.890 - Other specified postprocedural states (ICD-10) Family History Father Diabetes High blood pressure Daughter Seizure disorder Parathyroid disease Social History Narrative: , 3 daughters Alcohol use-regular use without concerns Non-smoker Smoking Status: Never smoker Do you use any of these nicotine containing products: None Second hand tobacco smoke exposure: No How often do you have a drink containing alcohol: 2-3 times a week How often do you have six or more drinks on one occasion: Never AUDIT-C Alcohol total score: 3 Non-prescribed substance use: marijuana (any form) Caffeine: Yes service: No Exam Narrative: Exam Narrative: Const: Well-nourished, Well-developed, in mild distress Eyes: PERRL, no conjunctival injection, and symmetrical lids HENT: Atraumatic external nose and ears. Moist mucous membranes. Neck: Symmetric, trachea midline, No thyromegaly. CVS: RRR, No murmurs or gallops. Peripheral pulses 2+ and equal in all extremities RESP: Unlabored respiratory effort. Clear to auscultation bilaterally. GI: Normal bowel lower abdominal tenderness on palpation. No tenderness to the upper abdominal region. Does have some guarding. Nondistended, No rebound. MSK:Extremities w/o deformity, Normal Active ROM Skin: Warm, Dry. No rashes or lesions. Neuro: Normal Muscle tone, No focal neurological deficits. Psych: Awake, Alert, & Oriented x3. Appropriate mood and affect. Const: Vital Signs, click to edit/add: Vital Signs - 24 hr 03/08/24 09:19 Temperature 98.6 F Pulse Rate [Pulse Oximeter] 95 Respiratory Rate 18 Blood Pressure [Ri ght Upper Arm] 129/87 Pulse Oximetry 96 Oxygen Delivery Me thod Room Air Course Vital Signs Vital signs: Initial Vital Signs Temperature 98.6 F 03/08/24 09:19 Temperature Source Temporal Artery Scan 03/08/24 09:19 Pulse Rate 95 03/08/24 09:19 Respiratory Rate 18 03/08/24 09:19 Blood Pressure 129/87 03/08/24 09:19 Blood Pressure Mean 101 03/08/24 09:19 Blood Pressure Position Sitting 03/08/24 09:19 Pulse Oximetry 96 03/08/24 09:19 Oxygen Delivery Method Room Air 03/08/24 09:19 Vital Signs Temperature 98.6 F 03/08/24 09:19 Pulse Rate 95 03/08/24 09:19 Respiratory Rate 18 03/08/24 09:19 Blood Pressure 129/87 03/08/24 09:19 Pulse Oximetry 96 03/08/24 09:19 Oxygen Delivery Method Room Air 03/08/24 09:19 Temperature 98.6 F 03/08/24 09:19 Pulse Rate 95 03/08/24 09:19 Respiratory Rate 18 03/08/24 09:19 Blood Pressure 129/87 03/08/24 09:19 Pulse Oximetry 96 03/08/24 09:19 Oxygen Delivery Method Room Air 03/08/24 09:19 Medications Administered Medications: Discontinued Medications Generic Name Dose Route Start Last Admin Trade Name Freq PRN Reason Stop Dose Admin Lactated Ringer's 1,000 mls @ 1,000 mls/hr 03/08/24 09:39 03/08/24 10:19 Lactated Ringers 1000 Ml IV 03/08/24 10:38 1,000 mls/hr .Q1H ONE Administration MDM - Abdominal Pain MDM Narrative Medical decision making narrative: Patient is a 49-year-old male presenting for lower abdominal pain. Differential at this time includes diverticulitis, colitis, appendicitis, cystitis. Seems less likely to be gallbladder or liver disease considering the location. Also seems unlikely to be pancreatitis. With it being bilateral is also less likely to be nephrolithiasis. Will do a CT scan for better evaluation. Does not want anything for pain or nausea at this time. Will give him some fluids for his likely associated dehydration. Will also do CBC, CMP, COVID/flu/RSV, urinalysis, lipase. Lab work returned showing a white count of 15.12. It is neutrophil other predominant. CMP shows no concerning findings urinalysis shows no clear signs of UTI. Viral swabs are negative. CT scan reviewed by myself and the radiologist does show acute diverticulitis. Radiology recommends and follow-up colonoscopy. Patient does states she had a colonoscopy 1 year ago that was normal. More recent resurgence showing antibiotics are not necessary in diverticulitis but considering the patient has been having symptoms for 4 days and has an elevated white count I will start him on Augmentin. I informed him of his CT findings. States he will take Tylenol and ibuprofen at home for pain. He is agreeable for discharge. Lab Data Labs: Lab Results 03/08/24 03/08/24 Range/Units 09:50 10:10 WBC 15.12 H (4.50-11.00) K/uL RBC 4.82 (4.30-5.90) m/uL Hgb 14.0 (13.5-17.5) gm/dL Hct 42.4 (37.0-53.0) % MCV 88 (80-100) fL MCH 29 (26-34) pg MCHC 33 (32-36) gm/dL RDW Coeff of Daphne 12.4 (11.5-15.5) % Plt Count 341 (140-440) K/uL Neut % (Auto) 79.7 H (42.0-72.0) % Lymph % (Auto) 10.4 L (20-44) % [place] % (Auto) 7.6 (0.0-11.0) % Eos % (Auto) 1.5 (0.0-7.0) % Baso % (Auto) 0.3 (0.0-3.0) % Neut # (Auto) 12.10 H (1.7-7.0) K/uL Lymph # (Auto) 1.60 (0.90-2.90) K/uL [place] # (Auto) 1.10 H (0.00-0.90) K/UL Eos # (Auto) 0.20 (0.00-0.50) K/uL Baso # (Auto) 0.00 (0.00-0.30) K/uL Abs Immat Gran (auto) 0.10 (0.00-0.30) K/uL Imm/Tot Granulo (auto) 0.5 % Sodium 135 (135-149) mmol/L Potassium 4.2 (3.6-5.1) mmol/L Chloride 101 (96-114) mmol/L Carbon Dioxide 25 (20-32) mmol/L Anion Gap 9 (7-15) mEq/L BUN 12 (7-30) mg/dL Creatinine 0.9 (0.5-1.5) mg/dL Estimated Creat Clear 117.36 Estimated GFR 104 ml/min Glucose 132 H (60-115) mg/dL Calcium 9.1 (8.4-10.6) mg/dL Total Bilirubin 0.8 (0.1-1.5) mg/dL AST 18 (12-35) U/L ALT 33 (4-50) U/L Alkaline Phosphatase 73 (40-150) U/L Total Protein 7.8 (6.0-8.3) g/dL Albumin 4.3 (3.3-5.0) g/dL Lipase 206 (23-300) U/L Urine Color Yellow (Yellow) Urine Appearance Clear (Clear) Urine pH 6.5 (5.0-8.5) Ur Specific [place] 1.010 (1.000-1.030) Urine Protein Negative (Negative) Urine Glucose (UA) Negative (Negative) Urine Ketones Negative (Negative) Urine Blood 1+ A (Negative) Urine Nitrite Negative (Negative) Urine Bilirubin Negative (Negative) Urine Urobilinogen 1.0 (0.2-1.0) Ur Leukocyte Esterase Negative (Negative) Urine RBC 0-2 (0-2) Urine WBC 0-2 (0-5) Ur Squamous Epith Cells Few (None-Few) Urine Bacteria None (None) SARS-CoV-2 (PCR) Negative SARS-CoV-2 (Negative) Influenza Type A (PCR) Negative PCR FLU A (Negative) Influenza Type B (PCR) Negative PCR FLU B (Negative) RSV (PCR) Negative PCR RSV (Negative) Imaging Data CT scan abdomen and pelvis: Attestation: I have reviewed the pertinent imaging results. Radiologist's impression: 1. There are 2 separate areas of acute diverticulitis. One is in the distal descending colon and the other is in the sigmoid colon. Follow-up direct evaluation of the colon is recommended after resolution of the acute inflammatory process to ensure that both areas do indeed represent a benign underlying etiology. 2. Other nonacute appearing findings as above Please note that all CT scans at this facility use dose modulation, iterative reconstruction, and/or weight-based dosing when appropriate to reduce radiation dose to as low as reasonably achievable. Dictated by Ruy Guevara MD @ 03/08/2024 10:24:34 AM Discharge Plan Discharge Clinical Impression: Diverticulitis Patient Disposition: Home, Self-Care Condition: Stable Instructions: Diverticulitis (DC), Clear Liquid Diet (ED) Additional Instructions: Stick to a clear liquid diet for your symptoms. Continue to take Tylenol and ibuprofen. Use the antibiotics as directed. If symptoms are not improving you should follow-up with your primary care provider. Also recommend speaking to her primary care provider after the resolution of your symptoms about possibly needing a follow-up colonoscopy. Prescriptions: New amoxicillin-pot clavulanate 875-125 mg tablet 1 tab PO TID Qty: 15 0RF No Action losartan 50 mg tablet 50 mg PO DAILY Qty: 90 3RF montelukast 10 mg tablet 10 mg PO QDAY Qty: 90 3RF Rx Instructions: one tablet once daily for allergic rhinitis Follow Up/Referrals: Valeria Nazario PA-C [Primary Care Provider] - Stand Alone Forms: Dana Translation Info Instructions
[2024-03-08 10:24] LABS: Appearance Urine Clear (Clear); Bilirubin Urine Negative (Negative); Blood Urine 1+ (Negative); Color Urine Yellow (Yellow); Glucose Urine Negative (Negative); Ketones Urine Negative (Negative); Leukocyte Esterase Urine Negative (Negative); Nitrite Urine Negative (Negative); Protein Urine Negative (Negative); pH Urine 6.5 (5.0-8.5)
[2024-03-08 10:32] LABS: PCR FLU A Negative PCR FLU A (Negative); PCR FLU B Negative PCR FLU B (Negative); PCR RSV Negative PCR RSV (Negative); SARS PCR* Negative SARS-CoV-2 (Negative)
[2024-03-08 10:49] LABS: RBC Urine 0-2 (0-2); Squamous Epithelial Cell Urine Few (None-Few); WBC Urine 0-2 (0-5)
== END 2024-03-08 11:40 | disposition home or self-care (01) ==
PROVIDERS: Emergency Provider Student in an Organized Health Care Education/Training Program; PCP Physician Assistant Medical
DX: K57.92 Diverticulitis of intestine, part unspecified, without perforation or abscess without bleeding (principal)
CPT/HCPCS: 36415; 74177; 80053; 81001; 83690; 85025; 87631; 96360; 99284; 99285; J7120; Q9967

== ENCOUNTER 2024-06-16 08:59 | Outpatient (CLI) | payer OTHER, SELFPAY ==
--- NOTE | 2024-06-16 09:15 | CRLHL7_ITS ---
For Patients: As a result of the Century Cures Act, medical imaging exams and procedure reports are released immediately into your electronic medical record. You may view this report before your referring provider. If you have questions, please contact your health care provider. Indication: Left hip pain. Procedure : Informed consent was obtained. The site was marked. Time-out was performed. The skin of the left hip was cleansed with ChloraPrep. A sterile drape was placed. 8 cc of 1 percent lidocaine was administered for superficial anesthesia. Subsequently a 22 gauge spinal needle was introduced into the left hip joint under intermittent fluoroscopic guidance. 7 cc 1 percent lidocaine and 2 cc 40 milligram/cc Depo-Medrol then placed into the left hip joint. The needle was removed and hemostasis achieved with direct pressure. A dressing was placed. The patient tolerated the procedure well without immediate complication and was immediately sent to MRI for imaging. Total fluoroscopy time 0.10 minutes Impression: Successful fluoroscopically guided left hip injection with 80 milligrams of Depo-Medrol. Dictated by Micheal Renee MD @ 06/16/2024 12:31:12 PM (Electronically Signed)
== END 2024-06-16 09:00 | disposition home or self-care (01) ==
PROVIDERS: PCP Physician Assistant Medical; Visit Provider Orthopaedic Surgery Sports Medicine
DX: M25.552 Pain in left hip (principal); M16.12 Unilateral primary osteoarthritis, left hip
CPT/HCPCS: 20610; 77002; Q9966

== ENCOUNTER 2024-06-20 08:15 | Outpatient (CLI) | payer OTHER, SELFPAY | END 2024-06-20 08:16 | disposition home or self-care (01) | PROVIDERS: PCP Physician Assistant Medical; Visit Provider Physician Assistant Medical | DX: I10 Essential (primary) hypertension (principal); K76.0 Fatty (change of) liver, not elsewhere classified; M10.9 Gout, unspecified; N40.0 Benign prostatic hyperplasia without lower urinary tract symptoms; Z12.5 Encounter for screening for malignant neoplasm of prostate; Z13.29 Encounter for screening for other suspected endocrine disorder | CPT/HCPCS: 80053; 80061; 84443; 84550; G0103 ==

== ENCOUNTER 2024-09-02 08:15 | Outpatient (RCR) | payer OTHER, SELFPAY | END 2024-12-31 23:59 | disposition home or self-care (01) | PROVIDERS: PCP Physician Assistant Medical; Visit Provider Orthopaedic Surgery Sports Medicine | DX: M25.561 Pain in right knee (principal); R29.898 Other symptoms and signs involving the musculoskeletal system; Z51.89 Encounter for other specified aftercare | CPT/HCPCS: 97012; 97110; 97112; 97162 ==